=== PATIENT | female | born 1985 | race Caucasian/White ===

== ENCOUNTER 2022-10-08 16:38 | Emergency (ER) | payer OTHER ==
[2022-10-08 16:53] VITALS: BP 138/84; PULSE 84; RESP 16; TEMP 98.1; BMI 34.0
[2022-10-08] MEDS ORDERED: KETOROLAC TROMETHAMINE 30 MG/1 ML VIAL IM ONE (18:04)
[2022-10-08 18:12] LABS: EPI CELLS >36 /uL (0-25.1); HYALINE CASTS 1 /uL (0-3.1); URINE APPEARANCE CLEAR; URINE BACTERIA 3003 /uL (0-1359); URINE BILIRUBIN NEGATIVE (NEGATIVE); URINE COLOR YELLOW; URINE GLUCOSE (UA) NEGATIVE (NEGATIVE); URINE KETONE NEGATIVE (NEGATIVE); URINE LEUK ESTERASE NEGATIVE (NEGATIVE); URINE NITRITE NEGATIVE (NEGATIVE); URINE PROTEIN NEGATIVE (NEGATIVE); URINE RBC 52 /uL (0-23.9); URINE WBC 29 /uL (0-25.8)
[2022-10-08] MEDS ORDERED: KETOROLAC TROMETHAMINE 30 MG/1 ML VIAL ONE (18:44)
[2022-10-08] MEDS ORDERED: ONDANSETRON *ODT* 4 MG TABLET SL ONE (18:51)
[2022-10-08] MEDS ORDERED: ONDANSETRON *ODT* 4 MG TABLET ONE (20:04)
== END 2022-10-08 20:00 | disposition home or self-care (01) ==
LOC: JER 16:38
PROC: 3E0233Z Introduction of Anti-inflammatory into Muscle, Percutaneous Approach (ICD-10-PCS; principal; 2022-10-08)
DX: R07.89 Other chest pain (principal); M54.50 Low back pain, unspecified; R00.2 Palpitations
CPT/HCPCS: 71046-TC-FY; 81003; 93005; 93010; 99285-25

== ENCOUNTER 2023-03-23 08:45 | Emergency (ER) | payer OTHER ==
[2023-03-23 09:06] VITALS: BP 120/84; PULSE 95; RESP 16; TEMP 98.2; BMI 32.0
== END 2023-03-23 09:51 | disposition home or self-care (01) ==
LOC: JERFT 08:45
DX: H92.02 Otalgia, left ear (principal); H60.12 Cellulitis of left external ear; H60.92 Unspecified otitis externa, left ear
CPT/HCPCS: 99283-25